=== PATIENT | male | born 1995 | race Caucasian/White ===

== ENCOUNTER 2016-12-11 10:45 | Outpatient (CLI) | payer OTHER ==
[~2016-12-11 10:45] MED LIST: Gadobenate Dimeglumine 529 MG/1 ML (20ML VIAL) ONE
--- NOTE | 2016-12-11 13:28 | MRI ---
MRI BRAIN WITH AND WITHOUT CONTRAST: HISTORY: 21-year-old male with migraine with aura, not intractable, without status migrainosis. ICD-10: G43.1 09 Interval change of symptoms: Recent worsening of headaches. TECHNIQUE: Multiple sequences obtained in axial, sagittal, and coronal planes; pre and post IV injection of ryley olinium-based contrast agent: 15 ml MultiHance. FINDINGS: The ventricles are normal in size and configuration. There is no major intraaxial signal abnormalit y, restricted diffusion, abnormal intraaxial enhancement, mass, midline shift or any other mass effe ct, recent intraaxial hemorrhage, or extraaxial fluid collection. IMPRESSION: Normal. lexa POS: STEVE
== END 2016-12-11 10:46 | disposition home or self-care (01) ==
LOC: SCSMRI 10:45
PROVIDERS: ATTEND Psychiatry & Neurology Neurology
DX: G43.109 Migraine with aura, not intractable, without status migrainosus (principal)
CPT/HCPCS: 70553; A9579